=== PATIENT | male | born 1965 | race Hispanic/Latino ===

== ENCOUNTER 2016-05-21 06:28 | Day surgery (SDC) | payer BC ==
[2016-05-13 06:40] VITALS: BMI 31.3
[2016-05-21] MEDS ORDERED: Propofol 10 mg/ml Inj (20 ML) ONE ×2 (08:12→08:24)
[2016-05-21] MEDS ORDERED: Lidocaine 1% Inj (20ml) ONE (08:12)
[2016-05-21] MEDS ORDERED: Lactated Ringer's 1,000 ML IV SCH (09:00)
[2016-05-21 10:12] VITALS: BP 111/63; PULSE 71; RESP 18; TEMP 97.7; O2SAT 97
== END 2016-05-21 10:18 | disposition home or self-care (01) ==
LOC: ENDO 06:28
PROVIDERS: ATTEND Internal Medicine Gastroenterology
DX: Z12.11 Encounter for screening for malignant neoplasm of colon (principal); K63.5 Polyp of colon; I10 Essential (primary) hypertension; K57.30 Diverticulosis of large intestine without perforation or abscess without bleeding; K64.1 Second degree hemorrhoids
CPT/HCPCS: 45380; 88305; J2704; J3010; J7040; J7120